=== PATIENT | male | born 1970 | race American Indian/Alaskan Native ===

== ENCOUNTER 2017-10-14 05:48 | Emergency (ER) | payer SELFPAY ==
[2017-10-14 06:15] VITALS: BP 136/69
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
[2017-10-14] MEDS ORDERED: TORADOL IM ONE (09:02)
== END 2017-10-14 09:32 | disposition home or self-care (01) ==
LOC: EDBD 05:48 → ED 05:48
DX: G44.89 Other headache syndrome (principal); I10 Essential (primary) hypertension; J45.909 Unspecified asthma, uncomplicated; F17.200 Nicotine dependence, unspecified, uncomplicated; Z88.6 Allergy status to analgesic agent; Y04.8XXA Assault by other bodily force, initial encounter; Y93.89 Activity, other specified; Y92.89 Other specified places as the place of occurrence of the external cause; Y99.8 Other external cause status
CPT/HCPCS: 70450; 70486; 96372; 99283; J1885